=== PATIENT | female | born 1960 | race Hispanic/Latino ===

== ENCOUNTER 2017-02-13 16:59 | Emergency (ER) | payer MEDICARE, MEDICAID ==
[~2017-02-13 16:59] MED LIST: ISOVUE-370 76%-LOCM 1 ML ONE
[2017-02-13 17:37] LABS: Bilirubin Negative (Negative); Blood, Urine Moderate (Negative); Glucose, Urine (Dipstick) Negative (Negative); Ketone, Urine Negative (Negative); Nitrite Negative (Negative); Protein, Urine (Dipstick) Negative (Neg-Trace); Urobilinogen 0.2 mg/dL (0.2-1.0)
[2017-02-13 17:45] LABS: #Eosinphils 0.1 thou/uL (0.0-0.7); #Lymphocytes 3.3 thou/uL (1.20-3.40); #Monocytes 0.8 thou/uL (0.11-0.59); #Neutrophils 5.3 thou/uL (1.40-6.50); %Basophils 0.2 % (0.0-1.0); %Eosinophils 1.5 % (0.0-10.0); %Lymphocytes 34.9 % (21.0-51.0); %Monocytes 8.1 % (0.0-10.0); Hematocrit 42.4 % (36.0-47.0); Mean Platelet Volume 7.6 fL (7.4-10.4); Red Blood Cell (RBC) Count 5.02 mill/uL (4.20-5.40); White Blood Cell (WBC) Count 9.6 thou/uL (4.8-10.8)
[2017-02-13 17:46] LABS: Bacteria/HPF Rare-Few HPF (None Seen); Hyaline Casts/LPF NONE SEEN LPF (0-3 Hyaline); RBC/HPF 0-3 HPF (0-3)
[2017-02-13] MEDS ORDERED: Ondansetron ODT 4 MG TAB ONE (18:05)
[2017-02-13 18:09] LABS: ALT (SGPT) 43 U/L (8-55); AST (SGOT) 45 U/L (5-34); Alkaline Phosphatase 98 U/L (40-150); Anion Gap 12 mmol/L (10-20); BUN (Urea Nitrogen) 8 mg/dL (9.8-20.1); Bilirubin, Total 0.4 mg/dL (0.2-1.2); Calc. Creatinine Clearance 0 mL/min (70-130); Calcium 9.4 mg/dL (7.8-10.44); Carbon Dioxide 25 mmol/L (22-29); Chloride 104 mmol/L (98-107); Estimated GFR-MDRD Greater than 90; Globulin 3.8 g/dL (2.4-3.5); Protein, Total 7.6 g/dL (6.0-8.3)
[2017-02-13] MEDS ORDERED: Dicyclomine HCl 20 mg/2 ml Ampule ONE (19:51)
[2017-02-13] MEDS ORDERED: Famotidine/PF 20 mg/2ml Vial ONE (19:51)
--- NOTE | 2017-02-13 20:43 | CT ---
CONTRAST ENHANCED ABDOMEN AND PELVIC CT 02/13/17 INDICATION: Left lower quadrant pain. COMPARISON: 08/12/16. FINDINGS: No evidence of focal hepatic or splenic lesion. No peripancreatic inflammation. There is a small cor tical cyst of the anterolateral right kidney. No adrenal mass. There is no free air. The bowel is no t reliably assessed without enteric contrast administration. No ascites of significance is seen. The re is a battery pack from spinal stimulator device located at the right lower flank. No acute osseou s pathology. No evidence of lobar consolidation or effusion at the imaged lung bases. IMPRESSION: No acute abnormality visualized. POS: [id number]
== END 2017-02-13 21:24 | disposition home or self-care (01) ==
LOC: ERS 16:59
DX: R10.12 Left upper quadrant pain (principal); G43.909 Migraine, unspecified, not intractable, without status migrainosus; E78.5 Hyperlipidemia, unspecified; I10 Essential (primary) hypertension; J45.909 Unspecified asthma, uncomplicated; F41.9 Anxiety disorder, unspecified; F32.9 Major depressive disorder, single episode, unspecified; Z79.82 Long term (current) use of aspirin; Z79.84 Long term (current) use of oral hypoglycemic drugs; Z79.899 Other long term (current) drug therapy
CPT/HCPCS: 36415; 74177; 80053; 81003; 81015; 83690; 85025; 96372; 96374; Q0162; S0028

== ENCOUNTER 2017-04-04 19:02 | Emergency (ER) | payer MEDICARE, MEDICAID | END 2017-04-04 21:01 | disposition home or self-care (01) | LOC: ERS 19:02 | DX: J11.1 Influenza due to unidentified influenza virus with other respiratory manifestations (principal); H65.91 Unspecified nonsuppurative otitis media, right ear; J45.909 Unspecified asthma, uncomplicated; E78.5 Hyperlipidemia, unspecified; I10 Essential (primary) hypertension; F41.9 Anxiety disorder, unspecified; F32.9 Major depressive disorder, single episode, unspecified; G43.909 Migraine, unspecified, not intractable, without status migrainosus | CPT/HCPCS: 99283 ==

== ENCOUNTER → 2017-05-01 | Outpatient (CLI) | payer MEDICARE, MEDICAID | LOC: BICMAMMO 15:05 | PROVIDERS: ATTEND Family Medicine | DX: Z12.31 Encounter for screening mammogram for malignant neoplasm of breast (principal) | CPT/HCPCS: 77063; G0202; 77067 ==